=== PATIENT | female | born 1970 | race Caucasian/White ===

== ENCOUNTER → 2018-04-10 | Emergency (ER) | payer MEDICAID ==
[~2018-04-10] VITALS: Ht 172.7 cm; Wt 108.9 kg
[~2018-04-10] MED LIST: KEFLEX500 MG PO; LEVOTHYROXINE75 MCG PO; NORCO 5-325 TA1 EACH PO; ONDANSETRON ODT8 MG PO; WELLBUTRIN XL300 MG PO
== END ==
LOC: ED 03:24
DX: J06.9 Acute upper respiratory infection, unspecified (principal); F17.200 Nicotine dependence, unspecified, uncomplicated; Z79.899 Other long term (current) drug therapy
CPT/HCPCS: 99282

== ENCOUNTER 2018-04-26 22:13 | Emergency (ER) | payer SELFPAY ==
[~2018-04-26] VITALS: Ht 172.7 cm; Wt 108.9 kg
[~2018-04-26 22:13] MED LIST changes: -KEFLEX500 MG PO
[2018-04-26] MEDS ORDERED: KEFLEX500 MG PO (23:39)
== END 2018-04-26 23:58 | disposition home or self-care (01) ==
LOC: ED 22:13
DX: N39.0 Urinary tract infection, site not specified (principal); F17.200 Nicotine dependence, unspecified, uncomplicated; Z79.899 Other long term (current) drug therapy
CPT/HCPCS: 81001; 99283

== ENCOUNTER 2025-06-05 09:20 | Emergency (ER) | payer OTHER ==
[~2025-06-05] VITALS: Ht 172.7 cm; Wt 118.4 kg
[~2025-06-05 09:20] MED LIST changes: +KEFLEX500 MG PO
--- OUTSIDE RECORDS SUMMARY | 2025-06-05 09:22 | XMS ---
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 Sherwin VISIT COUNT (12 MO.) [facility] TOTAL 1 NOTE: Visits indicate total known visits. ED/UCC VISIT TRACKING (12 MO.) 06/05/2025 09:21 [facility] TYPE: Emergency COMPLAINT: - STROKE SYMPTOMS INPATIENT VISIT TRACKING (12 MO.) No inpatient visits to display in this time frame [id number]
[2025-06-05] MEDS ORDERED: IBLOOD GLUCOSE TEST STRIP 1 EA TEST XX ONE (09:30)
[2025-06-05 09:37] LABS: BASOPHILS 0.6 % (0.1-1.2); EOSINOPHILS 3.8 % (0.7-5.8); LYMPHOCYTES 31.1 % (19.3-51.7); MCH 30.9 PG (25.6-32.2); MCHC 34.0 g/dL (32.2-35.5); MCV 90.7 fL (79.4-94.8); MONOCYTES 7.7 % (4.7-12.5); NEUTROPHILS 56.2 % (34.0-71.1); RBC 5.15 M/uL (3.93-5.22)
[2025-06-05 10:08] LABS: INR 1.0 (0.80-1.30); PROTIME 12.8 Sec (11.2-14.2)
[2025-06-05 10:15] LABS: ALT (SGPT) 54.0 U/L (14-59); AST (SGOT) 25.0 U/L (15-37); GLOMERULAR FILTRATION RATE,EST 55.0 mL/min (>60); PROTEIN, TOTAL 7.5 g/dL (6.4-8.2); UREA NITROGEN 12.0 mg/dL (7-18)
[2025-06-05] MEDS ORDERED: PROCHLORPERAZINE EDISYLATE 10 MG/2 ML VIAL IV ONE (10:15)
[2025-06-05] MEDS ORDERED: DEXAMETHASONE SOD PHOS 10 MG/ML VIAL IV ONE (10:15)
[2025-06-05] MEDS ORDERED: LORazepam 2 MG/ML VIAL IV ONE (10:45)
[2025-06-05 13:46] LABS: AMPHETAMINES, URINE NEGATIVE (NEGATIVE); BARBITURATES, URINE NEGATIVE (NEGATIVE); BENZODIAZEPINE, URINE NEGATIVE (NEGATIVE); CANNABINOID, URINE NEGATIVE (NEGATIVE); COCAINE, URINE NEGATIVE (NEGATIVE); ECSTASY, URINE NEGATIVE (NEGATIVE); FENTANYL, URINE POSITIVE (NEGATIVE); METHADONE, URINE NEGATIVE (NEGATIVE); OPIATES, URINE POSITIVE (NEGATIVE); OXYCODONE, URINE NEGATIVE (NEGATIVE); PHENCYCLIDINE, URINE NEGATIVE (NEGATIVE)
[2025-06-05 15:36] VITALS: BP 127/80
--- NOTE | 2025-06-05 21:50 | EKG ---
[facility] [address] [place] [address] Signed Sinus bradycardia Otherwise normal ECG No previous ECGs available Confirmed by Caleb Walton MD () on 06/05/2025 9:49:51 PM Electronically Signed By: CALEB WALTON MD 06/05/252149 PATIENT NAME: KELLEE RAJAN URIAH Electrocardiogram DATE OF : 70 PHYSICIAN: CALEB WALTON MD REPORT #: [id number] REPORT IS CONFIDENTIAL AND NOT TO BE RELEASED WITHOUT AUTHORIZATION
== END 2025-06-05 15:36 | disposition home or self-care (01) ==
LOC: ED 09:20
PROVIDERS: Emergency Medicine
DX: R47.01 Aphasia (principal); F17.200 Nicotine dependence, unspecified, uncomplicated; Z79.2 Long term (current) use of antibiotics
CPT/HCPCS: 36415; 70450; 70496; 70498; 70551; 71045; 80053; 80307; 84484; 85025; 85610; 85730; 93005; 93010; 99285-25; J0780; J1100; J1200; Q3014; Q9967

== ENCOUNTER 2025-10-01 06:29 | Emergency (ER) | payer OTHER ==
[~2025-10-01] VITALS: Ht 172.7 cm; Wt 116.0 kg
--- OUTSIDE RECORDS SUMMARY | 2025-10-01 06:36 | XMS ---
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 Sherwin VISIT COUNT (12 MO.) 2 [facility] TOTAL 2 NOTE: Visits indicate total known visits. ED/UCC VISIT TRACKING (12 MO.) 10/01/2025 06:29 [facility] TYPE: Emergency COMPLAINT: - URINE PROBLEM 06/05/2025 09:21 [facility] TYPE: Emergency COMPLAINT: - STROKE SYMPTOMS DIAGNOSES: - Aphasia - [facility] (current) use of antibiotics - Nicotine dependence, unspecified, uncomplicated INPATIENT VISIT TRACKING (12 MO.) No inpatient visits to display in this time frame [id number]
[2025-10-01] MEDS ORDERED: PRAVASTATIN SOD40 MG (06:43)
[2025-10-01] MEDS ORDERED: METFORMIN HCL500 MG PO (06:43)
[2025-10-01 06:46] LABS: BLOOD/HGB, URINE LARGE (Negative); KETONE, URINE NEGATIVE (Negative); LEUK ESTERASE, URINE MODERATE (negative); NITRITE, URINE NEGATIVE (negative)
[2025-10-01 06:54] LABS: BACTERIA, URINE RARE /hpf (negative); CASTS, URINE NONE SEEN \\lpf; CRYSTALS, URINE NONE SEEN (0-1+); EPITHELIAL CELLS, URINE SQUAMOUS 1+ /lpf (0-1+); REFLEX CULTURE, URINE Yes (No)
[2025-10-01] MEDS ORDERED: NITROFURANTOIN MONOHYD MACROCR 100 MG HOME.PACK PO ONE (07:00)
[2025-10-01] MEDS ORDERED: PHENAZOPYRIDINE HCL 100 MG TAB PO ONE (07:00)
[2025-10-01] MEDS ORDERED: PYRIDIUM200 MG PO (07:01)
[2025-10-01] MEDS ORDERED: MACROBID 100 M100 MG PO (07:01)
[2025-10-01 07:24] VITALS: BP 142/75
== END 2025-10-01 07:24 | disposition home or self-care (01) ==
LOC: ED 06:29
PROVIDERS: Family Medicine
DX: N39.0 Urinary tract infection, site not specified (principal); F17.200 Nicotine dependence, unspecified, uncomplicated; Z79.84 Long term (current) use of oral hypoglycemic drugs; Z79.899 Other long term (current) drug therapy
CPT/HCPCS: 51798; 81001; 87088; 99283

== ENCOUNTER 2025-10-02 09:14 | Emergency (ER) | payer OTHER ==
[~2025-10-02] VITALS: Ht 172.7 cm; Wt 116.3 kg
--- OUTSIDE RECORDS SUMMARY | ~2025-10-02 | XMS | Continuity of Care Document ---
Demographics + + + | Address | [address] | | | [place] [address] | + + + | Preferred Language | Unknown | + + + | Marital Status | Never | + + + | Orthodoxy Affiliation | Unknown | + + + | Race | White | + + + | Ethnic Group | Not or | + + + Author + + + | Author | [facility] | + + + | Organization | [facility] | + + + | Address | [address] | | | [place] [address] | + + + | Phone | | + + + Care Team Providers + + + + | Care Patient Services Coordinator Name | Role | Phone | + + + + Unavailable | Unavailable | + + + + Unavailable | Unavailable | + + + + Allergies No information. Encounters No information. Functional Status No information. Immunizations No information. Medications + + + + | date | description | facility | + + + + | 2025-10-01 00:00 | PHENAZOPYRIDINE HCL | [facility] | | | | [facility] | + + + + | 2025-10-01 00:00 | NITROFURANTOIN MONOHYD | [facility] | | | MACROCR | [facility] | + + + + | (no date) | HYDROCODONE | [facility] | | | BIT/ACETAMINOPHEN | [facility] | + + + + | (no date) | METFORMIN HCL | [facility] | | | | [facility] | + + + + | (no date) | PRAVASTATIN SODIUM | [facility] | | | | [facility] | + + + + | (no date) | LEVOTHYROXINE SODIUM | [facility] | | | | [facility] | + + + + | (no date) | buPROPion HCL | [facility] | | | | [facility] | + + + + Problems No information. Procedures No information. Results/Labs +--------+--------+ +---------+--------+---------+ | test | date | facility | value | unit | notes | +--------+--------+ +---------+--------+---------+ + + | Result panel 1 | + + + + + + + + + | Color Ur | 2025-10-01 | | YELLOW | (missing) | (missing) | | Auto | 06:35:08 | [facility] | | | | + + + + + + + + + | Result panel 2 | + + + + + +-------+ + + | | 2025-10-01 | | 1.0 | (missing) | (missing) | | Urobilinogen | 06:35:08 | [facility] | | | | | Ur | | [facility] | [facility] | [facility] | | | | + + + +-------+ + + + + | Result panel 3 | + + + + + + + + + | Nitrite Ur | 2025-10-01 | | NEGATIVE | (missing) | (missing) | | Ql Strip | 06:35:08 | [facility] | | | | | | | [facility] | | | | + + + + + + + + + | Result panel 4 | + + + + + + + + + | Leukocyte | 2025-10-01 | | MODERATE | (missing) | (missing) | | esterase Ur | 06:35:08 | [facility] | | | | | Ql Strip | | - [facility] | [facility] | | | | + + + + + + + + + | Result panel 5 | + + + + + +---------+ + + | RBC #/area | 2025-10-01 | | 21-40 | (missing) | (missing) | | [facility] | 06:35:08 | [facility] | | | | | | | - | | | | | | | [facility] | [facility] | | | | + + + +---------+ + + + + | Result panel 6 | + + + + + +-------+ + + | WBC #/area | 2025-10-01 | | >50 | (missing) | (missing) | | UrnS HPF | 06:35:08 | [facility] | | | | | | | [facility] | | | | + + + +-------+ + + + + | Result panel 7 | + + + + + + + + + | Epi Cells | 2025-10-01 | | SQUAMOUS 1+ | (missing) | (missing) | | #/area UrnS | 06:35:08 | [facility] | | | | | HPF | | - [facility] | | | | | | [facility] | | | | + + + + + + + + + | Result panel 8 | + + + + + + + + + | Crystals | 2025-10-01 | | NONE SEEN | (missing) | (missing) | | UrnS Micro | 06:35:08 | [facility] | | | | | | | [facility] | | | | [facility] | | | | + + + + + + + + + | Result panel 9 | + + + + + +--------+ + + | Bacteria | 2025-10-01 | | RARE | (missing) | (missing) | | #/area StevennS | 06:35:08 | [facility] | | | | | HPF | | - [facility] | | | | | | [facility] | | | | + + + +--------+ + + + + | Result panel 10 | + + + + + + + + + | Casts | 2025-10-01 | | NONE SEEN | (missing) | (missing) | | #/area UrnS | 06:35:08 | [facility] | | | | | LPF | | - [facility] | | | | | | [facility] | | | | | [facility] | | | | + + + + + + + + + | Result panel 11 | + + + + + +-------+ + + | Bacteria Ur | 2025-10-01 | | Yes | (missing) | (missing) | | Cult | 06:35:08 | [facility] | | | | | | | [facility] | | [facility] | | | [facility] | | | | + + + +-------+ + + + + | Result panel 12 | + + + + + + + + + | Character | 2025-10-01 | | CLOUDY | (missing) | (missing) | | Ur | 06:35:08 | [facility] | | | | | | | [facility] | | | | | | [facility] | | | | + + + + + + + + + | Result panel 13 | + + + + + + + + + | Urn Spec | 2025-10-01 | | CLEAN CATCH | (missing) | (missing) | | Collect Meth | 06:35:08 | [facility] | | | | | Ur | | - [facility] | | | | | | [facility] | | | | | [facility] | | | | + + + + + + + + + | Result panel 14 | + + + + + + + + + | Glucose Ur | 2025-10-01 | | NEGATIVE | (missing) | (missing) | | Ql Strip | 06:35:08 | [facility] | | | | | | | [facility] | | [facility] | | [facility] | | | | + + + + + + + + + | Result panel 15 | + + + + + + + + + | Mendy Harris | 2025-10-01 | | NEGATIVE | (missing) | (missing) | | Ql Strip | 06:35:08 | [facility] | | | | | | [facility] | [facility] | | | | + + + + + + + + + | Result panel 16 | + + + + + + + + + | Ketones Ur | 2025-10-01 | | NEGATIVE | (missing) | (missing) | | Ql Strip | 06:35:08 | [facility] | | | | | | | [facility] | | [facility] | | | [facility] | | [facility] | | | | + + + + + + + + + | Result panel 17 | + + + + + +---------+ + + | Sp Gr Ur | 2025-10-01 | | 1.020 | (missing) | (missing) | | Strip | 06:35:08 | [facility] | | | | | | [facility] | | | | + + + +---------+ + + + + | Result panel 18 | + + + + + +---------+ + + | Hgb Ur Ql | 2025-10-01 | | LARGE | (missing) | (missing) | | Strip | 06:35:08 | [facility] | | | | | | [facility] | | | | + + + +---------+ + + + + | Result panel 19 | + + + + + +-------+ + + | pH Ur Strip | 2025-10-01 | | 6.0 | (missing) | (missing) | | | 06:35:08 | [facility] | | | | | | [facility] | | | | + + + +-------+ + + + + | Result panel 20 | + + + + + +-------+ + + | Prot Ur | 2025-10-01 | | 100 | (missing) | (missing) | | [facility] | 06:35:08 | [facility] | | | | | [facility] | [facility] | | | [facility] | | | | | | [facility] | | | | + + + +-------+ + + Social History +--------+ + + | date | description | facility | +--------+ + + Vital Signs + + + +---------+ | date | measurement | value | units | + + + +---------+ | 2025-10-01 00:00 | BMI | 38.9 | kg/m2 | + + + +---------+ | 2025-10-01 00:00 | BP_diastolic | 75 | mmHg | + + + +---------+ | 2025-10-01 00:00 | BP_systolic | 142 | mmHg | + + + +---------+ | 2025-10-01 00:00 | heart_rate | 62 | /min | + + + +---------+ | 2025-10-01 00:00 | height_metric | 172.72 | cm | + + + +---------+ | 2025-10-01 00:00 | height_standard | 68 | in | + + + +---------+ | 2025-10-01 00:00 | o2_saturation | 98 | % | + + + +---------+ | 2025-10-01 00:00 | respiration_rate | 16 | /min | + + + +---------+ | 2025-10-01 00:00 | | 97.9 | F | | | temperature_standar | | | | | d | | | + + + +---------+ | 2025-10-01 00:00 | weight_metric | 116.001 | kg | + + + +---------+ | 2025-10-01 00:00 | weight_standard | 255.737 | lb | + + + +---------+"
[~2025-10-02 09:14] MED LIST changes: +MACROBID 100 M100 MG PO; +METFORMIN HCL500 MG PO; +PRAVASTATIN SOD40 MG; +PYRIDIUM200 MG PO
--- OUTSIDE RECORDS SUMMARY | 2025-10-02 09:19 | XMS ---
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 ECarmen VISIT COUNT (12 MO.) 3 [facility] [place] TOTAL 3 NOTE: Visits indicate total known visits. ED/UCC VISIT TRACKING (12 MO.) 10/02/2025 09:15 [facility] TYPE: Emergency COMPLAINT: - CONGESTION 10/01/2025 06:29 [facility] TYPE: Emergency COMPLAINT: - URINE PROBLEM 06/05/2025 09:21 [facility] TYPE: Emergency COMPLAINT: - STROKE SYMPTOMS DIAGNOSES: - Aphasia - retirement (current) use of antibiotics - Nicotine dependence, unspecified, uncomplicated INPATIENT VISIT TRACKING (12 MO.) No inpatient visits to display in this time frame [id number]
[2025-10-02] MEDS ORDERED: OXYMETAZOLINE HCL 30 ML BTL NAS ONE (09:45)
[2025-10-02 10:14] VITALS: BP 117/91
== END 2025-10-02 10:14 | disposition home or self-care (01) ==
LOC: ED 09:14
DX: J06.9 Acute upper respiratory infection, unspecified (principal); F17.200 Nicotine dependence, unspecified, uncomplicated
CPT/HCPCS: 99283

== ENCOUNTER 2025-10-10 11:26 | Emergency (ER) | payer OTHER ==
[~2025-10-10] VITALS: Ht 172.7 cm; Wt 117.4 kg
--- OUTSIDE RECORDS SUMMARY | ~2025-10-10 | XMS | Continuity of Care Document ---
Demographics + + + | Address | [address] | | | [place] [address] | + + + | Preferred Language | Unknown | + + + | Marital Status | Never | + + + | Episcopal Affiliation | Unknown | + + + | Race | White | + + + | Ethnic Group | Not or | + + + Author + + + | Author | [facility] | + + + | Organization | [facility] | + + + | Address | [address] | | | [place] [address] | + + + | Phone | | + + + Care Team Providers + + + + | Care Biomedical Engineering Aide Name | Role | Phone | + + + + Unavailable | Unavailable | + + + + Unavailable | Unavailable | + + + + Allergies No information. Encounters No information. Functional Status No information. Immunizations No information. Medications + + + + | date | description | facility | + + + + | 2025-10-01 00:00 | PHENAZOPYRIDINE HCL | [facility] | | | | [facility] | + + + + | 2025-10-01 00:00 | NITROFURANTOIN MONOHYD | [facility] | | | MACROCR | [facility] | + + + + | (no date) | HYDROCODONE | [facility] | | | BIT/ACETAMINOPHEN | [facility] | + + + + | (no date) | METFORMIN HCL | [facility] | | | | [facility] | + + + + | (no date) | PRAVASTATIN SODIUM | [facility] | | | | [facility] | + + + + | (no date) | LEVOTHYROXINE SODIUM | [facility] | | | | [facility] | + + + + | (no date) | buPROPion HCL | [facility] | | | | [facility] | + + + + Problems No [...] | (missing) | (missing) | | [facility] | 06:35:08 | [facility] | | | [...] 17 | + + + + + + + + + | Bilirub Ur | 2025-10-01 | | NEGATIVE | [...] 18 | + + + + + + [...] 19 | + + + + + +---------+ + + | Sp Gr Ur | 2025-10-01 | | 1.020 | (missing) | (missing) | | Strip | 06:35:08 | [facility] | | | | + + + +---------+ + + + + | Result panel 20 | + + + + + +---------+ [...] + + + + | Result panel 21 | + + + + + +-------+ [...] + + + + | Result panel 22 | + + + + + +-------+ + + | Prot Ur | 2025-10-01 | | 100 | (missing) | (missing) | | [facility] | 06:35:08 | [facility] | | | | | | [facility] | [facility] | | | | | | [facility] | | | | + + + +-------+ + + + + | Result panel 23 | + + + + + + [...] + + + + | Result panel 24 | + + + + + +-------+ [...] + + + + | Result panel 25 | + + + + + + [...] + + + + | Result panel 26 | + + + + + + [...] + + + + | Result panel 27 | + + + + + +---------+ + + | RBC #/area | 2025-10-01 | | 21-40 | (missing) | (missing) | | UrnS HPF | 06:35:08 | [facility] | | | | | | [facility] | [facility] | [facility] | | | | + + + +---------+ + + + + | Result panel 28 | + + + + + +-------+ + + | WBC #/area | 2025-10-01 | | >50 | (missing) | (missing) | | UrnS [facility] | 06:35:08 | [facility] | | | | | | | [facility] | | | | | | [facility] | | | | | | [facility] | | | | + + + +-------+ + + + + | Result panel 29 | + + + + + + [...] + + + + | Result panel 30 | + + + + + + [...] + + + + | Result panel 31 | + + + + + +--------+ [...] + + + + | Result panel 32 | + + + + + + [...] + + + + | Result panel 33 | + + + + + +-------+ + + | Bacteria Steven | 2025-10-01 | | Yes | (missing) | (missing) | | Cult | 06:35:08 | [facility] | | | | [facility] | | | | + + + +-------+ + + + + | Result panel 34 | + + + + + + [...] + + + + | Result panel 35 | + + + + + + [...] + + + + | Result panel 36 | + + + + + + + + + | Carmina Harris | 2025-10-01 | | NEGATIVE | (missing) | (missing) | | Ql Strip | 06:35:08 | [facility] | | | | | | | [facility] | [facility] | | | | [facility] | | [facility] | | | | + + + + + + + + + | Result panel 37 | + + + + + +---------+ + + | Remy Harris | 2025-10-01 | | 1.020 | (missing) | (missing) | | Strip | 06:35:08 | [facility] | | | | | | | - [facility] | | | | | | | [facility] | | | | | [facility] | | | | + + + +---------+ + + + + | Result panel 38 | + + + + + +---------+ [...] + + + + | Result panel 39 | + + + + + +-------+ [...] + + + + | Result panel 40 | + + + + + +-------+ + + | Prot Ur | 2025-10-01 | | 100 | (missing) | (missing) | | [facility] | 06:35:08 | [facility] | | | [...] 255.737 | lb | + + + +---------+ | 2025-10-02 00:00 | BMI | 39.0 | kg/m2 | + + + +---------+ | 2025-10-02 00:00 | BP_diastolic | 91 | mmHg | + + + +---------+ | 2025-10-02 00:00 | BP_systolic | 117 | mmHg | + + + +---------+ | 2025-10-02 00:00 | heart_rate | 71 | /min | + + + +---------+ | 2025-10-02 00:00 | height_metric | 172.72 | cm | + + + +---------+ | 2025-10-02 00:00 | height_standard | 68 | in | + + + +---------+ | 2025-10-02 00:00 | o2_saturation | 94 | % | + + + +---------+ | 2025-10-02 00:00 | respiration_rate | 16 | /min | + + + +---------+ | 2025-10-02 00:00 | | 97.8 | F | | | temperature_standar | | | | | d | | | + + + +---------+ | 2025-10-02 00:00 | weight_metric | 116.301 | kg | + + + +---------+ | 2025-10-02 00:00 | weight_standard | 256.400 | lb | + + + +---------+"
--- OUTSIDE RECORDS SUMMARY | 2025-10-10 11:33 | XMS ---
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 ECarmen VISIT COUNT (12 MO.) 4 [facility] TOTAL 4 NOTE: Visits indicate total known visits. 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
[2025-10-10 13:24] VITALS: BP 155/82
[2025-10-10] MEDS ORDERED: METHYLPREDNISOLO4 M1 PO (22:57)
== END 2025-10-10 13:24 | disposition left against medical advice (07) ==
LOC: ED 11:26
DX: Z53.21 Procedure and treatment not carried out due to patient leaving prior to being seen by health care provider (principal)

== ENCOUNTER 2025-10-10 17:54 | Emergency (ER) | payer OTHER | END 2025-10-10 23:58 | disposition home or self-care (01) | LOC: ED 17:54 | DX: J06.9 Acute upper respiratory infection, unspecified (principal); F17.200 Nicotine dependence, unspecified, uncomplicated ==